=== PATIENT | female | born 1995 | race Caucasian/White ===

== ENCOUNTER 2018-10-31 16:04 | Emergency (ER) | payer MEDICAID ==
[~2018-10-31] VITALS: Ht 180.3 cm; Wt 150.0 kg
[~2018-10-31 16:04] MED LIST: HYDR-3972 PO; NORG1TAB82 PO
[2018-10-31] MEDS ORDERED: LIDOcaine 5% patch TP STA (16:25)
[2018-10-31] MEDS ORDERED: ketorolac tromethamine 15mg/ml inj. IM ONE (16:25)
[2018-10-31 16:36] VITALS: BP 140/94
[2018-10-31] MEDS ORDERED: LIDO700A32 TOP (16:48)
== END 2018-10-31 17:04 | disposition home or self-care (01) ==
LOC: ER 16:05
DX: S39.012A Strain of muscle, fascia and tendon of lower back, initial encounter (principal); F12.90 Cannabis use, unspecified, uncomplicated; Z79.899 Other long term (current) drug therapy; Z90.49 Acquired absence of other specified parts of digestive tract; X58.XXXA Exposure to other specified factors, initial encounter; Y93.89 Activity, other specified; Y92.89 Other specified places as the place of occurrence of the external cause; Y99.8 Other external cause status
CPT/HCPCS: 96372; 99283; J1885

== ENCOUNTER 2023-12-02 15:38 | Emergency (ER) | payer MEDICAID ==
[~2023-12-02] VITALS: Ht 180.3 cm; Wt 142.7 kg
[~2023-12-02 15:38] MED LIST changes: +LIDO700A32 TOP
[2023-12-02 15:50] VITALS: TEMP 97.6
[2023-12-02 16:24] LABS: BASOPHILS # (AUTO) 0.1 X10'3 (0-0.2); BASOPHILS % (AUTO) 0.5 % (0-1); EOSINOPHILS # (AUTO) 0.1 X10'3 (0-0.9); EOSINOPHILS % (AUTO) 0.6 % (0-6); HEMATOCRIT 49.4 % (35.0-45.0); HEMOGLOBIN 16.5 g/dl (12.0-16.0); LYMPHOCYTES # (AUTO) 3.1 X10'3 (1.1-4.8); LYMPHOCYTES % (AUTO) 20.6 % (21-51); MEAN CORPUSCULAR HEMOGLOBIN 29.4 PG (27.0-31.0); MEAN CORPUSCULAR HGB CONC 33.3 g/dL (33.0-36.5); MEAN CORPUSCULAR VOLUME 88.4 FL (78-98); MEAN PLATELET VOLUME 7.6 FL (7.4-10.4); MONOCYTES # (AUTO) 1.2 X10'3 (0-0.9); MONOCYTES % (AUTO) 7.8 % (2-12); NEUTROPHILS # (AUTO) 10.7 X10'3 (1.8-7.7); NEUTROPHILS % (AUTO) 70.5 % (42-75); PLATELET COUNT 355 X10'3 (140-440); RED BLOOD COUNT 5.59 X10'6 (4.20-5.60); RED CELL DISTRIBUTION WIDTH 13.6 % (11.5-14.5); WHITE BLOOD COUNT 15.1 X10'3 (4.5-11.0)
[2023-12-02 16:48] LABS: ALANINE AMINOTRANSFERASE 45 U/L (12-78); ALBUMIN 3.9 G/DL (3.4-5.0); ALBUMIN/GLOBULIN RATIO 0.8 (1.1-1.5); ALKALINE PHOSPHATASE 80 IU/L (46-116); ANION GAP 12 (8-16); ASPARTATE AMINO TRANSFERASE 30 U/L (10-37); BILIRUBIN,TOTAL 0.3 MG/DL (0.1-1.0); BLOOD UREA NITROGEN 13 MG/DL (7-18); CHLORIDE 103 MMOL/L (99-107); GLUCOSE 125 MG/DL (70-104); LIPASE 24 U/L (16-77); POTASSIUM 4.1 MMOL/L (3.5-5.1); SODIUM 140 MMOL/L (135-145); TOTAL CARBON DIOXIDE 24.8 MMOL/L (24-32); TOTAL PROTEIN 8.6 G/DL (6.4-8.2); eCRCL 94 ML/MIN; eGFR 66 ML/MIN
[2023-12-02 16:54] LABS: CALCIUM 9.5 MG/DL (8.5-10.1)
[2023-12-02] MEDS: ondansetron 4mg rapidly disintigrating tab PO STA (17:57)
[2023-12-02] MEDS: oxyCODONE IR 5mg (immed. release) tablet PO STA (18:01)
[2023-12-02 18:16] LABS: BETA HCG,QUANTITATIVE < 1.0 mIU/ml
[2023-12-02] MEDS ORDERED: iohexol 300mg/ml 100ml inj. ONE (18:21)
[2023-12-02] MEDS: proCHLORperazine 10 MG/2 ml inj IV STA (19:02)
[2023-12-02] MEDS: ketorolac trometh 30MG/ML vial 30 MG/ML VIAL IV STA (19:02)
[2023-12-02] MEDS: morphine 4 MG/ML inj SYRINge IV STA (19:04)
[2023-12-02] MEDS: normal saline 1000ML IV soln IV ONE (19:30)
[2023-12-02] MEDS: normal saline 1000ml 1,000 ML IV ONE (19:30)
[2023-12-02] MEDS: CefTRIAXone 2gm/D5W 50ml BAG 50 ML IV ONE (20:02)
[2023-12-02] MEDS: normal saline 1000ml 1,000 ML IV STA (20:05)
[2023-12-02 20:16] VITALS: BP 148/93
[2023-12-02 20:18] LABS: BILIRUBIN,URINE NEGATIVE (Neg); CLARITY,URINE CLEAR (Clear); COLOR,URINE YELLOW (Yellow); GLUCOSE, URINE NEGATIVE (Neg); KETONES,URINE TRACE mg/dl (Neg); LEUKOCYTE ESTERASE ,URINE NEGATIVE (Neg); NITRITES, URINE NEGATIVE (Neg); OCCULT BLOOD,URINE MODERATE (Neg); PROTEIN,URINE TRACE mg/dl (Neg); UROBILINOGEN,URINE 0.2 E.U/dL (0.2-1.0)
[2023-12-02 20:26] LABS: UA COLLECTION TYPE CLN CATCH MIDSTREAM
[2023-12-02 20:32] LABS: BACTERIA,URINE FEW /HPF (Neg); MUCUS STRANDS MODERATE /LPF (Neg); SQUAMOUS EPITHELIAL CELL,UR FEW /LPF (FEW); TRANSITIONAL EPI CELLS,URINE FEW /HPF; WBC,URINE 0-4 /HPF (0-4)
[2023-12-02] MEDS ORDERED: NAPR-56 PO (22:22)
[2023-12-02] MEDS ORDERED: FLO0.4C PO (22:22)
[2023-12-02] MEDS ORDERED: HYDR-3965 PO (22:22)
[2023-12-02] MEDS: tamsulosin 0.4mg capsule PO STA (22:35)
[2023-12-02 22:53] VITALS: PULSE 87; RESP 20; O2SAT 98
== END 2023-12-02 22:59 | disposition home or self-care (01) ==
LOC: ER 15:39
DX: N13.2 Hydronephrosis with renal and ureteral calculous obstruction (principal); F12.90 Cannabis use, unspecified, uncomplicated; R11.2 Nausea with vomiting, unspecified; Z79.899 Other long term (current) drug therapy; Z90.49 Acquired absence of other specified parts of digestive tract
CPT/HCPCS: 36415; 74177; 80053; 81001; 83605; 83690; 84145; 84702; 85025; 87040; 96361; 96374; 96375; 99285; J0696; J0780; J1885; J2270; J7030; Q9967

== ENCOUNTER 2024-03-25 08:12 | Day surgery (SDC) | payer MEDICAID ==
[2024-03-18 14:56] LABS: BASOPHILS # (AUTO) 0.1 X10'3 (0-0.2); BASOPHILS % (AUTO) 0.8 % (0-1); EOSINOPHILS # (AUTO) 0.1 X10'3 (0-0.9); EOSINOPHILS % (AUTO) 1.2 % (0-6); MEAN CORPUSCULAR HEMOGLOBIN 30.2 PG (27.0-31.0); MEAN PLATELET VOLUME 7.5 FL (7.4-10.4); MONOCYTES # (AUTO) 0.7 X10'3 (0-0.9)
[2024-03-18 14:58] LABS: LYMPHOCYTES # (AUTO) 2.9 X10'3 (1.1-4.8); LYMPHOCYTES % (AUTO) 25.3 % (21-51); MEAN CORPUSCULAR HGB CONC 34.3 g/dL (33.0-36.5); NEUTROPHILS # (AUTO) 7.7 X10'3 (1.8-7.7); NEUTROPHILS % (AUTO) 66.7 % (42-75); PRE OP HEMATOCRIT 42.8 % (35.0-45.0); PRE OP HEMOGLOBIN 14.7 g/dL (12.0-16.0); PRE OP PLATELET COUNT 353 X10'3 (140-440); PRE OP WHITE BLOOD COUNT 11.6 10'3 (4.8-10.8); RED BLOOD COUNT 4.87 X10'6 (4.20-5.60); RED CELL DISTRIBUTION WIDTH 13.5 % (11.5-14.5)
[2024-03-18 15:03] LABS: HCG SERUM QL NEGATIVE
[2024-03-18 15:07] LABS: ALBUMIN 3.7 G/DL (3.4-5.0); ALBUMIN/GLOBULIN RATIO 0.8 (1.1-1.5); ALKALINE PHOSPHATASE 70 IU/L (46-116); BLOOD UREA NITROGEN 8 MG/DL (7-18); BUN/CREATININE RATIO 14.8 (10.0-20.0); CALCIUM 9.1 MG/DL (8.5-10.1); CHLORIDE 106 MMOL/L (99-107); CREATININE 0.54 MG/DL (0.40-0.90); PRE OP ALT 30 U/L (30-65); PRE OP ANION GAP 9 (8-16); PRE OP AST 14 U/L (10-37); PRE OP BILIRUB, TOTAL 0.3 MG/DL (0.0-1.0); PRE OP GLUCOSE 120 MG/DL (70-104); PRE OP POTASSIUM 4.1 MMOL/L (3.4-5.1); PRE OP SODIUM 141 MMOL/L (135-145); TOTAL CARBON DIOXIDE 25.7 MMOL/L (24-32); TOTAL PROTEIN 8.5 G/DL (6.4-8.2); eGFR > 90 ML/MIN
[2024-03-25] VITALS (10 sets, daily range): BP systolic 145–182; BP diastolic 80–110; PULSE 82–114; RESP 12–32; TEMP 96.5; O2SAT 94–98
[~2024-03-25] VITALS: Ht 180.3 cm; Wt 147.4 kg
[~2024-03-25 08:12] MED LIST changes: +CETI10TA14 PO; +CITA20TA17 PO; -HYDR-3972 PO; +HYDR50CA5 PO; -LIDO700A32 TOP; +MELA1TAB25 SL; +MONT-40 PO; +NORG1TAB14 PO; -NORG1TAB82 PO; +[UNRECOGNIZED DRUG - OTHER]; +famotidine 20mg tablet PO ONE; +ringers solution, lacted 1,000 ML IV SCH
[2024-03-25] MEDS: ceFAZolin 2gm in dextrose, iso 50 ML IV ONE (08:43)
[2024-03-25] MEDS ORDERED: iohexol 300 MG/1 ML 50ml polymer ONE (09:07)
[2024-03-25] MEDS ORDERED: midazolam 1 mg/ML 2ml injection ONE ×2 (09:17→10:02)
[2024-03-25] MEDS: midazolam 1 mg/ML 2ml injection IV ONE (10:00)
[2024-03-25] MEDS ORDERED: propofol inj 20 ML IV ONE (10:02)
[2024-03-25] MEDS ORDERED: sevoflurane 250ml liquid IH ONE (10:02)
[2024-03-25] MEDS ORDERED: fentaNYL/PF 50MCG/1 ML 2ML syringe ONE ×2 (10:02→10:18)
[2024-03-25] MEDS ORDERED: meperidine/PF 25mg/ml syringe IV PRN ×3 (10:05)
[2024-03-25] MEDS ORDERED: morphine 4 MG/ML inj SYRINge IV PRN (10:05)
[2024-03-25] MEDS ORDERED: ringers solution, lacted 1,000 ML IV SCH (10:05)
[2024-03-25] MEDS ORDERED: proCHLORperazine 10 MG/2 ml inj IV PRN (10:05)
[2024-03-25] MEDS: ondansetron/PF 4mg/2ml inj ONE (10:08)
[2024-03-25] MEDS ORDERED: rocuronium 10mg/ml inj IV ONE (10:18)
[2024-03-25] MEDS ORDERED: dexamethasone sod phosphate 4mg/ml inj. ONE (10:36)
[2024-03-25] MEDS ORDERED: ondansetron/PF 4mg/2ml inj ONE (10:36)
[2024-03-25] MEDS ORDERED: sugammadex 200mg/2ml injection IV ONE (10:50)
[2024-03-25] MEDS: iohexol 300 MG/1 ML 50ml polymer IV ONE (11:48)
[2024-03-25] MEDS: ondansetron/PF 4mg/2ml inj IV PRN (12:02)
[2024-03-25] MEDS: morphine 2 MG/ML inj. syringe IV PRN (12:09)
== END 2024-03-25 12:33 | disposition home or self-care (01) ==
LOC: PAS 08:12
PROVIDERS: ATTEND Urology
DX: N13.2 Hydronephrosis with renal and ureteral calculous obstruction (principal); E66.9 Obesity, unspecified; F41.0 Panic disorder [episodic paroxysmal anxiety]; Z79.899 Other long term (current) drug therapy; Z90.49 Acquired absence of other specified parts of digestive tract; Z98.890 Other specified postprocedural states; Z80.9 Family history of malignant neoplasm, unspecified; Z68.42 Body mass index [BMI] 45.0-49.9, adult
CPT/HCPCS: 36415; 52356; 74420; 80053; 82948; 84703; 85025; 93005; C2617; J0690; J1100; J2250; J2270; J2405; J2704; J3010; J3490; J7030; J7120; Q9967; Z7506; Z7508; Z7512; 76000; A4338; A4618; A7000; C1769